=== PATIENT | female | born 1965 | race Caucasian/White ===

== ENCOUNTER 2016-07-28 17:11 | Emergency (ER) | payer OTHER ==
[~2016-07-28] VITALS: Ht 160 cm; Wt 62.0 kg
[~2016-07-28 17:11] MED LIST: ALBU18HF INHALATION; AZIT250T6 PO; BUTA1CAP39 PO; CEPH-443 PO; CIPR500T4 PO; DICY20TA59 PO; FAMO-18 PO; FIORICET PO; IBUP-1542 PO; IBUP200C PO; ONDA4TAB35 PO; ONDA4TAB8 PO; PRED50TA PO
[2016-07-28 17:15] VITALS: Ht 160 cm; Wt 62.0 kg
--- NOTE | 2016-07-28 21:46 | ERA ---
ER Documentation Chief Complaint Date/Time DATE: 07/28/16 TIME: 21:45 Chief Complaint Abdominal pain HPI The patient is a 50-year-old female, presenting to the ER because of abdominal pain, associated with nausea, vomiting, initially foot then mucus for the last 2 days. She denies fever, chills, neck pain, chest pain, dysuria, diarrhea, constipation., She does not smoke nor drink Past medical history: None Past surgical history: Tubal ligation ROS All systems reviewed and are negative except as per history of present illness. Medications Home Meds Active Scripts Ondansetron (Ondansetron Odt) 4 Mg Tab.rapdis, 4 MG PO Q6H Y for NAUSEA AND/OR VOMITING, #10 TAB Prov:YOSSI MULLINS MD 07/29/16 Ibuprofen* (Motrin*) 600 Mg Tab, 600 MG PO Q6H Y for PAIN AND OR ELEVATED TEMP, #20 TAB Prov:YOSSI MULLINS MD 07/29/16 Sulfamethoxazole-Trimethoprim* (Bactrim* DS) 800-160 Mg Tab, 1 TAB PO BID, #20 TAB Prov:YOSSI MULLINS MD 07/29/16 Discontinued Scripts Dicyclomine Hcl* (Bentyl*) 20 Mg Tablet, 20 MG PO QID, #20 TAB Prov:TAYLOR URENA NP 04/19/16 Ondansetron Hcl* (Zofran*) 4 Mg Tablet, 4 MG PO Q8H Y for NAUSEA AND/OR VOMITING , #30 TAB Prov:TAYLOR URENA NP 12/27/15 Rocovdgdnbvqf-Tydnggtsah-Olabtnzx-Codeine* (Fioricet w/ Codeine*) [id number] 30MG Capsule, 1 CAP PO Q6H Y for PAIN LEVEL 1-5, #20 CAP Prov:TAYLOR URENA NP 12/27/15 Prednisone* (Prednisone*) 50 Mg Tablet, 40 MG PO DAILY for 4 Days, TAB Prov:ISAC SANTIAGO NP 07/01/15 Azithromycin* (Azithromycin*) 250 Mg Tablet, 250 MG PO DAILY, #4 TAB Prov:ISAC SANTIAGO NP 07/01/15 Albuterol Sulfate* (Ventolin HFA*) 18 Gm Hfa.aer.ad, 2 PUFF INHALATION Q6H, #1 INHALER 0 Refills Prov:GUTIERREZ BURROUGHSJERMAN TRENT 06/21/15 Ibuprofen* (Ibuprofen*) 200 Mg Capsule, 600 MG PO BID, #60 CAP 0 Refills Prov:ELIAS BURROUGHS MILEY 06/09/15 Ondansetron Hcl* (Zofran* ODT) 4 mg -ODT Tab.disper, 4 MG PO DAILY Y for NAUSEA AND/OR VOMITING, #10 TAB 0 Refills Prov:HEIKEELIAS TRENT 06/09/15 Famotidine* (Pepcid*) 20 Mg Tablet, 20 MG PO BID for 14 Days, TAB Prov:PERRY FERRELL 04/25/15 Ondansetron Hcl* (Zofran*) 4 Mg Tablet, 4 MG PO Q6H for NAUSEA AND/OR VOMITING, #30 TAB Prov:PERRY FERRELL 04/25/15 Ibuprofen* (Ibuprofen*) 600 Mg Tablet, 600 MG PO Q6, #30 TAB Prov:FRANCINE AMBROCIO PA-C 04/25/15 Acetamin/Butalbital/Caffeine* (Fioricet*) 1 Tab Tab, 1 TAB PO Q4H Y for PAIN LEVEL 1-5, #20 TAB Prov:FRANCINE AMBROCIO PA-C 04/25/15 Ciprofloxacin Hcl* (Ciprofloxacin Hcl*) 500 Mg Tablet, 500 MG PO BID, #14 TAB Prov:FRANCINE AMBROCIO PA-C 04/25/15 Ondansetron Hcl* (Zofran*) 4 Mg Tablet, 4 MG PO Q6H for NAUSEA AND/OR VOMITING, #30 TAB Prov:JESSIE ALBARRAN MD 04/02/15 Ibuprofen* (Motrin*) 600 Mg Tab, 600 MG PO Q8, #30 0 Refills Prov:HEIKEELIAS TRENT 04/01/15 Cephalexin* (Keflex*) 500 Mg Capsule, 500 MG PO TID, #21 CAP 0 Refills Prov:HEIKEELIAS TRENT 04/01/15 Allergies Allergies: Coded Allergies: No Known Allergy (Verified , 07/28/16) PMhx/Soc History of Surgery: Yes (TUBAL LIGATION) Anesthesia Reaction: No Hx Neurological Disorder: Yes (sts possible migraine) Hx Respiratory Disorders: No Hx Cardiac Disorders: No Hx Psychiatric Problems: No Hx Miscellaneous Medical Probl: No Hx Alcohol Use: No Hx Substance Use: No Hx Tobacco Use: No Physical Exam Vitals Vital Signs Date Time Temp Pulse Resp B/P Pulse Ox O2 Delivery O2 Flow Rate FiO2 07/29/16 00:00 82 18 144/83 99 Room Air 07/28/16 23:00 68 18 135/73 99 Room Air 07/28/16 22:00 80 22 139/80 99 Room Air 07/28/16 21:53 76 16 148/72 98 Room Air 07/28/16 17:15 97.5 102 18 141/71 98 Physical Exam Const: No acute distress. Head: Atraumatic. Eyes: Normal Conjunctiva. ENT: Normal External Ears, Nose and Mouth. Neck: Full range of motion. No meningismus. Resp: Clear to auscultation bilaterally. Cardio: Regular rate and rhythm, no murmurs. Abd: Soft, non distended, normal bowel sounds, vague and diffuse abdominal tenderness, more tender at the epigastric area, no rigidity, rebound, CVA tenderness Skin: No petechiae or rashes. Back: No midline or flank tenderness. Ext: No cyanosis, or edema. Neur: Awake and alert. No focal deficit Psych: Normal Mood and Affect. Result Diagram: 07/28/16215807/28/162158 Results 24 hrs Laboratory Tests Test 07/28/16 21:59 07/28/16 23:27 White Blood Count 7.710^3/ul Red Blood Count 4.3310^6/ul Hemoglobin 12.8g/dl Hematocrit 36.7% Mean Corpuscular Volume 84.8fl Mean Corpuscular Hemoglobin 29.6pg Mean Corpuscular Hemoglobin Concent 34.9g/dl Red Cell Distribution Width 12.8% Platelet Count 25503^3/UL Mean Platelet Volume 10.7fl Neutrophils % 81.5% Lymphocytes % 13.2% Monocytes % 4.2% Eosinophils % 0.3% Basophils % 0.5% Nucleated Red Blood Cells % 0.0/100WBC Neutrophils # 6.310^3/ul Lymphocytes # 1.010^3/ul Monocytes # 0.310^3/ul Eosinophils # 0.010^3/ul Basophils # 0.010^3/ul Nucleated Red Blood Cells # 0.010^3/ul Sodium Level 141mmol/L Potassium Level 3.7mmol/L Chloride Level 104mmol/L Carbon Dioxide Level 25mmol/L Anion Gap 16 Blood Urea Nitrogen 14mg/dl Creatinine 0.44mg/dl Glucose Level 113mg/dl Calcium Level 9.4mg/dl Total Bilirubin 0.4mg/dl Direct Bilirubin 0.00mg/dl Indirect Bilirubin 0.4mg/dl Aspartate Amino Transf (AST/SGOT) 24IU/L Alanine Aminotransferase (ALT/SGPT) 31IU/L Alkaline Phosphatase 109IU/L Total Protein 7.5g/dl Albumin 4.4g/dl Globulin 3.10g/dl Albumin/Globulin Ratio 1.41 Lipase 49U/L Bedside Urine pH (LAB) 5.5 Bedside Urine Protein (LAB) 2+ Bedside Urine Glucose (UA) Negative Bedside Urine Ketones (LAB) 4+ Bedside Urine Blood Trace-lysed Bedside Urine Nitrite (LAB) Negative Bedside Urine Leukocyte Esterase (L 1+ Current Medications Medications (Trade) Dose Ordered Sig/Claire Route PRN Reason Start Time Stop Time Status Last Admin Dose Admin Ondansetron HCl (Zofran Inj) 4 mg ONCE STAT IV 07/28/16 22:08 07/28/16 22:11 DC 07/28/16 23:54 Morphine Sulfate (morphine) 2 mg ONCE ONCE IV 07/28/16 22:30 07/28/16 22:31 DC 07/28/16 23:56 Pantoprazole (Protonix Iv) 40 mg ONCE ONCE IV 07/28/16 22:30 07/28/16 22:31 DC 07/28/16 23:50 Procedures/[place] [address] Radiology Main Line: [phone] DIAGNOSTIC IMAGING REPORT Patient: PHILIP PARDO : 1965 Age: 50 Sex: F MR #: [id number] DOS: 07/28/168 Ordering MD: YOSSI MULLINS MD Location: E/R Room/Bed: PROCEDURE: US right upper quadrant CLINICAL INDICATION: Abdominal pain TECHNIQUE: Multiple real-time images were acquired of the patient's right upper abdomen utilizing a high resolution transducer. COMPARISON: None available FINDINGS: Liver: Normal in size, contour and echogenicity. Normal directional blood flow is seen within the patent main portal vein. The maximum dimension estimated at 12.5 cm . Gallbladder: Normal. No sonographic Cope's sign is reported. Common bile duct: Normal; 2.1 mm. There is no evidence for choledocholithiasis. Right Kidney: Normal; maximum length measured at approximately 11.5 cm. Pancreas: Visualized portions are normal. The tail is partially obscured by bowel gas. RPTAT:HJJR IMPRESSION: Normal right upper quadrant ultrasound. Physician Freeman Date Time Electronically viewed and signed by Physician Freeman on 07/28/2016 23:14 JR/ CC: YOSSI MULLINS MD [place] [id number] Radiology Main Line: [phone] DIAGNOSTIC IMAGING REPORT Patient: PHILIP PARDO : 1965 Age: 50 Sex: F MR #: [id number] DOS: 07/28/162207 Ordering MD: YOSSI MULLINS MD Location: E/R Room/Bed: PROCEDURE: CT abdomen and pelvis without contrast. CLINICAL INDICATION: Abdominal pain TECHNIQUE: CT scan of the abdomen and pelvis without contrast was performed. Sagittal and coronal reformatted images were obtained from the axial source images. CTDI = 7.59 mGy; DLP = 377.76 mGy-cm COMPARISON: Right upper quadrant ultrasound 07/28/2016 FINDINGS: Visualized lower thorax: Incidental calcified granuloma of the posterior right lower lobe, the lung bases are otherwise clear. There is no evidence for pleural effusion. Liver, gallbladder, pancreas and spleen: The liver is normal and size, contour and attenuation. There is no evidence for a liver mass or ductal dilatation. The gallbladder is unremarkable. No common bile duct abnormality is demonstrated. The pancreas is unremarkable. The spleen is normal in size. Adrenal glands and genitourinary system: The adrenal glands are normal bilaterally. The kidneys are normal and size, contour and attenuation with no evidence for masses, calculi or hydronephrosis. The ureters are unremarkable. No urinary bladder abnormality is demonstrated. The uterus and adnexa are unremarkable. There is no evidence of free fluid in the cul-de-sac. Gastrointestinal system: A small sliding hiatal hernia is present the remainder of the stomach is unremarkable.. The small bowel is normal in caliber with no ileus, obstruction or wall thickening. The appendix and surrounding fat are within the limits of normal. The colon shows no evidence for wall thickening or acute abnormality. Collapse of the lumen involving the distal transverse and descending colon may reflect colonic spasm, few diverticula of the distal colon are present. There is no evidence of diverticulitis Peritoneum, retroperitoneum, lymph nodes and vessels: The abdominal aorta is normal in caliber. There is no evidence for atherosclerotic calcification. The inferior vena cava is unremarkable. There is no evidence for adenopathy or mass. There is no ascites. Osseous structures and musculoskeletal findings: There is no fracture, lytic or blastic lesion. Bulging disk material facet arthropathy 08/09 contribute to central canal stenosis. No muscular abnormality or soft tissue pathology is present. RPTAT:HJJR IMPRESSION: 1. Collapse of the lumen involving the distal transverse and descending colon segments are equivocal for colonic spasm, colitis is believed to be less likely but correlation with diarrhea clinically is recommended. 2. Small sliding hiatal hernia. 3. Disk bulging at L4-5 contributing to central canal stenosis. 4. Otherwise unremarkable unenhanced examination. Physician Freeman Date Time Electronically viewed and signed by Physician Freeman on 07/28/2016 23:20 JR/ CC: YOSSI MULLINS MD MEDICAL MAKING DECISION: The patient is a 50-year-old female, presenting to the ER because of acute abdominal pain, most likely due to acute cystitis. She was treated with Zofran 4 mg IV for nausea, morphine 2 mg IV for pain, Protonix 40 mg IV with good response. The differential diagnoses considered include but are not limited to cholelithiasis, cholecystitis, cystitis, pancreatitis, hepatitis, gastritis, peptic ulcer disease, gastric ulcer, appendicitis, diverticulitis, cholangitis, choledocholithiasis, partial small bowel obstruction. Departure Diagnosis: Primary Impression: UTI (urinary tract infection) Condition: Good Comments She was discharged with Bactrim DS, Motrin, Zofran I discussed the findings with the patient. I advised the patient to follow-up with the primary physician in about 1-2 days, sooner if needed and return if any concern. The patient's blood pressure was elevated (>120/80) but appears stable without evidence of hypertension emergency or urgency. The patient was counseled about the risks of hypertension and urged to pursue outpatient monitoring and therapy within a week with their primary care physician. YOSSI MULLINS MD Jul 28, 2016 21:46
[2016-07-28] MEDS ORDERED: ONDANSETRON 4 MG INJ IV STA (22:08)
[2016-07-28 22:10] LABS: ADD SCAN DIFF NO
[2016-07-28 22:11] LABS: BASOPHILS % 0.5 % (0.0-2.0); EOSINOPHILS % 0.3 % (0.0-7.0); HEMATOCRIT 36.7 % (37.0-47.0); HEMOGLOBIN 12.8 g/dl (12.0-16.0); LYMPHOCYTES % 13.2 % (15.0-51.0); MEAN CORPUSCULAR HEMOGLOBIN 29.6 pg (29.0-33.0); MEAN CORPUSCULAR HGB CONC 34.9 g/dl (32.0-37.0); MEAN CORPUSCULAR VOLUME 84.8 fl (82.0-101.0); MEAN PLATELET VOLUME 10.7 fl (7.4-10.4); MONOCYTE # 0.3 10^3/ul (0.3-0.9); MONOCYTES % 4.2 % (0.0-11.0); NEUTROPHIL # 6.3 10^3/ul (1.6-7.5); NEUTROPHILS % 81.5 % (39.0-77.0); PLATELET COUNT 234 10^3/UL (140-415); RED BLOOD COUNT 4.33 10^6/ul (4.20-5.40); RED CELL DISTRIBUTION WIDTH 12.8 % (11.5-14.5); WHITE BLOOD COUNT 7.7 10^3/ul (4.8-10.8)
[2016-07-28 22:19] LABS: ALBUMIN 4.4 g/dl (3.3-4.9)
[2016-07-28 22:20] LABS: POTASSIUM 3.7 mmol/L (3.5-5.1)
[2016-07-28 22:22] LABS: ALBUMIN/GLOBULIN RATIO 1.41; BILIRUBIN,INDIRECT 0.4 mg/dl (0-1.1); BILIRUBIN,TOTAL 0.4 mg/dl (0.2-1.3); CREATININE 0.44 mg/dl (0.44-1.00); TOTAL PROTEIN 7.5 g/dl (6.1-8.1)
[2016-07-28 22:23] LABS: CALCIUM 9.4 mg/dl (8.4-10.2)
[2016-07-28] MEDS ORDERED: morphine 2 MG INJ IV ONE (22:30)
[2016-07-28] MEDS ORDERED: PANTOPRAZOLE 40 MG INJ IV ONE (22:30)
--- NOTE | 2016-07-28 23:14 | RADRPT ---
PROCEDURE: US right upper quadrant CLINICAL INDICATION: Abdominal pain TECHNIQUE: Multiple real-time images were acquired of the patient's right upper abdomen utilizing a high resolution transducer. COMPARISON: None available FINDINGS: Liver: Normal in size, contour and echogenicity. Normal directional blood flow is seen within the p atent main portal vein. The maximum dimension estimated at 12.5 cm . Gallbladder: Normal. No sonographic Cope's sign is reported. Common bile duct: Normal; 2.1 mm. There is no evidence for choledocholithiasis. Right Kidney: Normal; maximum length measured at approximately 11.5 cm. Pancreas: Visualized portions are normal. The tail is partially obscured by bowel gas. RPTAT:HJJR IMPRESSION: Normal right upper quadrant ultrasound. Physician Freeman Date Time Electronically viewed and signed by Physician Freeman on 07/28/2016 23:14 /
--- NOTE | 2016-07-28 23:20 | RADRPT ---
PROCEDURE: CT abdomen and pelvis without contrast. CLINICAL INDICATION: Abdominal pain TECHNIQUE: CT scan of the abdomen and pelvis without contrast was performed. Sagittal and coronal reformatted images were obtained from the axial source images. CTDI = 7.59 mGy; DLP = 377.76 mGy-cm COMPARISON: Right upper quadrant ultrasound 07/28/2016 FINDINGS: Visualized lower thorax: Incidental calcified granuloma of the posterior right lower lobe, the lung bases are otherwise clear. There is no evidence for pleural effusion. Liver, gallbladder, pancreas and spleen: The liver is normal and size, contour and attenuation. Th ere is no evidence for a liver mass or ductal dilatation. The gallbladder is unremarkable. No comm on bile duct abnormality is demonstrated. The pancreas is unremarkable. The spleen is normal in si ze. Adrenal glands and genitourinary system: The adrenal glands are normal bilaterally. The kidneys are normal and size, contour and attenuation with no evidence for masses, calculi or hydronephrosis. T he ureters are unremarkable. No urinary bladder abnormality is demonstrated. The uterus and adnexa are unremarkable. There is no evidence of free fluid in the cul-de-sac. Gastrointestinal system: A small sliding hiatal hernia is present the remainder of the stomach is u nremarkable.. The small bowel is normal in caliber with no ileus, obstruction or wall thickening. The appendix and surrounding fat are within the limits of normal. The colon shows no evidence for w all thickening or acute abnormality. Collapse of the lumen involving the distal transverse and desc ending colon may reflect colonic spasm, few diverticula of the distal colon are present. There is no evidence of diverticulitis Peritoneum, retroperitoneum, lymph nodes and vessels: The abdominal aorta is normal in caliber. The re is no evidence for atherosclerotic calcification. The inferior vena cava is unremarkable. There is no evidence for adenopathy or mass. There is no ascites. Osseous structures and musculoskeletal findings: There is no fracture, lytic or blastic lesion. Bul ging disk material facet arthropathy 08/09 contribute to central canal stenosis. No muscular abnorma lity or soft tissue pathology is present. RPTAT:HJJR IMPRESSION: 1. Collapse of the lumen involving the distal transverse and descending colon segments are equivoca l for colonic spasm, colitis is believed to be less likely but correlation with diarrhea clinically is recommended. 2. Small sliding hiatal hernia. 3. Disk bulging at L4-5 contributing to central canal stenosis. 4. Otherwise unremarkable unenhanced examination. Oumar Mosher Physician Date Time Electronically viewed and signed by Oumar Mosher Physician on 07/28/2016 23:20 /
[2016-07-28 23:28] LABS: URINE BLOOD (Dip) POC Trace-lysed (NEGATIVE)
[2016-07-29] MEDS ORDERED: BACTDS PO (01:49)
[2016-07-29] MEDS ORDERED: ONDA4TAB14 PO (01:50)
[2016-07-29] MEDS ORDERED: IBUP-1542 PO (01:50)
[2016-07-29 02:00] VITALS: BP 145/84; PULSE 62; RESP 18
== END 2016-07-29 02:52 | disposition home or self-care (01) ==
LOC: E/R 17:11
DX: N39.0 Urinary tract infection, site not specified (principal)
CPT/HCPCS: 74176; 76705; 80053; 81003; 83690; 85025; 96374; 96375; C9113; J2270; J2405; Z7502

== ENCOUNTER 2016-09-01 16:18 | Emergency (ER) | payer OTHER ==
[~2016-09-01] VITALS: Ht 157.5 cm; Wt 67.0 kg
[~2016-09-01 16:18] MED LIST changes: -ALBU18HF INHALATION; -AZIT250T6 PO; +BACTDS PO; -BUTA1CAP39 PO; -CEPH-443 PO; -CIPR500T4 PO; -DICY20TA59 PO; -FAMO-18 PO; -FIORICET PO; -IBUP200C PO; +ONDA4TAB14 PO; -ONDA4TAB35 PO; -ONDA4TAB8 PO; -PRED50TA PO
[2016-09-01 16:29] VITALS: Ht 157.5 cm; Wt 67.0 kg
[2016-09-01] MEDS ORDERED: ONDANSETRON (ODT) 4 MG TAB ODT STA (19:18)
[2016-09-01 19:19] LABS: URINE BLOOD (Dip) POC Trace-lysed (NEGATIVE)
[2016-09-01] MEDS ORDERED: PANT40TA3 PO (19:20)
[2016-09-01] MEDS ORDERED: ONDA4TAB14 PO (19:20)
[2016-09-01] MEDS ORDERED: LIDOCAINE/MYLANTA 40 ML BTL PO ONE (19:30)
[2016-09-01] MEDS ORDERED: ACETAMINOPHEN 325 MG TAB PO ONE (19:30)
[2016-09-01 19:46] VITALS: BP 138/81; PULSE 74; RESP 18
--- NOTE | 2016-09-01 21:45 | ERD ---
ER Documentation Chief Complaint Date/Time DATE: 09/01/16 TIME: 21:43 Chief Complaint ap with vomiting x 2 days HPI Patient is a 50-year-old female with no medical problems who presents with abdominal pain and vomiting. She has had abdominal pain for the past 2 days. She has vomiting and she also has diarrhea. The symptoms have been constant. She tried a medicine for her vomiting but she does not know what medicine it was. She has no fevers. She has not called her primary doctor as of yet. Upon review of old medical record she has multiple visits to the ER for various complaints. ROS All systems reviewed and are negative except as per history of present illness. Medications Home Meds Active Scripts Pantoprazole* (Protonix*) 40 Mg Tablet.dr, 40 MG PO DAILY, #20 TAB Prov:BESS TREJO MD 09/01/16 Ondansetron (Ondansetron Odt) 4 Mg Tab.rapdis, 4 MG PO Q6H Y for NAUSEA AND/OR VOMITING, #30 TAB Prov:BESS TREJO MD 09/01/16 Discontinued Scripts Ondansetron (Ondansetron Odt) 4 Mg Tab.rapdis, 4 MG PO Q6H Y for NAUSEA AND/OR VOMITING, #10 TAB Prov:YOSSI MULLINS MD 07/29/16 Ibuprofen* (Motrin*) 600 Mg Tab, 600 MG PO Q6H Y for PAIN AND OR ELEVATED TEMP, #20 TAB Prov:YOSSI MULLINS MD 07/29/16 Sulfamethoxazole-Trimethoprim* (Bactrim* DS) 800-160 Mg Tab, 1 TAB PO BID, #20 TAB Prov:YOSSI MULLINS MD 07/29/16 Allergies Allergies: Coded Allergies: No Known Allergy (Verified , 09/01/16) PMhx/Soc History of Surgery: Yes (TUBAL LIGATION) Anesthesia Reaction: No Hx Neurological Disorder: Yes (sts possible migraine) Hx Respiratory Disorders: No Hx Cardiac Disorders: No Hx Psychiatric Problems: No Hx Miscellaneous Medical Probl: No Hx Alcohol Use: No Hx Substance Use: No Hx Tobacco Use: No Smoking Status: Never smoker FmHx Family History: No diabetes Physical Exam Vitals Vital Signs Date Time Temp Pulse Resp B/P Pulse Ox O2 Delivery O2 Flow Rate FiO2 09/01/16 19:46 74 18 138/81 100 Room Air 09/01/16 16:29 98.4 74 20 163/76 99 Physical Exam Const: No acute distress Head: Atraumatic Eyes: Normal Conjunctiva ENT: Normal External Ears, Nose and Mouth. Neck: Full range of motion..~ No meningismus. Resp: Clear to auscultation bilaterally Cardio: Regular rate and rhythm, no murmurs Abd: Soft, minimal epigastric tenderness with palpation without rebound or guarding Skin: No petechiae or rashes Back: No midline or flank tenderness Ext: No cyanosis, or edema Neur: Awake and alert Psych: Normal Mood and Affect Results 24 hrs Laboratory Tests Test 09/01/16 19:19 Bedside Urine pH (LAB) 7.0 Bedside Urine Protein (LAB) 2+ Bedside Urine Glucose (UA) Negative Bedside Urine Ketones (LAB) 2+ Bedside Urine Blood Trace-lysed Bedside Urine Nitrite (LAB) Negative Bedside Urine Leukocyte Esterase (L Trace Current Medications Medications (Trade) Dose Ordered Sig/Claire Route PRN Reason Start Time Stop Time Status Last Admin Dose Admin Ondansetron HCl (Zofran Odt) 4 mg ONCE STAT ODT 09/01/16 19:18 09/01/16 19:19 DC 09/01/16 19:26 Miscellaneous Medication (Gi Cocktail (2)) 40 ml ONCE ONCE PO 09/01/16 19:30 09/01/16 19:31 DC 09/01/16 19:27 Acetaminophen (Tylenol Tab) 650 mg ONCE ONCE PO 09/01/16 19:30 09/01/16 19:31 DC 09/01/16 19:26 Procedures/MDM Patient is a 50-year-old female with no medical problems who presents with abdominal pain, vomiting, and diarrhea. I believe the patient likely has a viral illness at this time. I doubt acute coronary syndrome, cholecystitis, pancreatitis, appendicitis, or bowel obstruction. I believe outpatient management is appropriate. However the patient will need close follow-up with her primary doctor within 24 hours for reevaluation. She can return sooner for any worsening symptoms. She will be given a prescription for Protonix and Zofran. Departure Diagnosis: Primary Impression: Abdominal pain Abdominal location: epigastric Qualified Code: R10.13 - Epigastric pain Additional Impression: Vomiting and diarrhea Condition: Fair Patient Instructions: Abdominal Pain, Self-Care for Vomiting and Diarrhea Referrals: Your doctor Additional Instructions: Llame al doctor MAANA y mckenna yue ANICETO PARA DENTRO DE 1-2 SONI.Dgale a la secretaria que nosotros le instruimos hacer esta aniceto.Avise o llame si koch condicin se empeora antes de la aniceto. Regresa aqui si peor o no mejor. BESS TREJO MD Sep 01, 2016 21:45
== END 2016-09-01 19:45 | disposition home or self-care (01) ==
LOC: E/R 16:18
DX: R10.13 Epigastric pain (principal); R11.10 Vomiting, unspecified; R19.7 Diarrhea, unspecified
CPT/HCPCS: 81003; Z7610; 99284

== ENCOUNTER 2017-03-20 23:03 | Emergency (ER) | payer OTHER ==
[~2017-03-20] VITALS: Ht 152.4 cm; Wt 62.0 kg
[~2017-03-20 23:03] MED LIST changes: -BACTDS PO; -IBUP-1542 PO; +PANT40TA3 PO
[2017-03-20 23:07] VITALS: Ht 152.4 cm; Wt 62.0 kg
[2017-03-21] MEDS ORDERED: ONDANSETRON 4 MG INJ IM STA (01:07)
--- NOTE | 2017-03-21 01:41 | ERD ---
ER Documentation Chief Complaint Chief Complaint velasquez and persistent n/v x 10 hrs, poor appetite, + mild dizziness HPI 51-year-old female presents here to emergency department for complaints of headache and vomiting that started yesterday. Patient is complaining of slight dizziness. Patient's complaint of headache throbbing pain, 6/10 scale, accompanied with vomiting. Patient has history of migraine from before. Patient did not take any medications to help with symptoms. She denies any head injury. ROS All systems reviewed and are negative except as per history of present illness. Medications Home Meds Active Scripts Pantoprazole* (Protonix*) 40 Mg Tablet.dr, 40 MG PO DAILY, #20 TAB Prov:BESS TREJO MD 09/01/16 Ondansetron (Ondansetron Odt) 4 Mg Tab.rapdis, 4 MG PO Q6H Y for NAUSEA AND/OR VOMITING, #30 TAB Prov:BESS TREJO MD 09/01/16 Allergies Allergies: Coded Allergies: No Known Allergy (Verified , 09/01/16) PMhx/Soc History of Surgery: Yes (TUBAL LIGATION) Anesthesia Reaction: No Hx Neurological Disorder: Yes (sts possible migraine) Hx Respiratory Disorders: No Hx Cardiac Disorders: No Hx Psychiatric Problems: No Hx Miscellaneous Medical Probl: No Hx Alcohol Use: No Hx Substance Use: No Hx Tobacco Use: No Smoking Status: Never smoker FmHx Family History: No coronary disease, No diabetes, No other Physical Exam Vitals Vital Signs Date Time Temp Pulse Resp B/P Pulse Ox O2 Delivery O2 Flow Rate FiO2 03/20/17 23:07 98.6 94 18 135/94 97 Physical Exam GENERAL: The patient is well developed and appropriate for usual state of health, in no apparent distress. CHEST: Clear to auscultation bilaterally. There are no rales, wheezes or rhonchi. HEART: Regular rate and rhythm. No murmurs, clicks, rubs or gallops. No S3 or S4. ABDOMEN: Soft, nontender and nondistended. Good bowel sounds. No rebound or guarding. No gross peritonitis. No gross organomegaly or masses. No Cope sign or McBurney point tenderness. BACK: No midline or flank tenderness. EXTREMITIES: Equal pulses bilaterally. There is no peripheral clubbing, cyanosis or edema. No focal swelling or erythema. Full range of motion. Grossly neurovascularly intact. NEURO: Alert and oriented. Cranial nerves 2-12 intact. Motor strength in all 4 extremities with 5/5 strength. Sensation grossly intact. Normal speech and gait. Negative Romberg sign. Negative pronator drift. SKIN: There is no apparent rash or petechia. The skin is warm and dry. HEMATOLOGIC AND LYMPHATIC: There is no evidence of excessive bruising or lymphedema. No gross cervical, axillary, or inguinal lymphadenopathy. Results 24 hrs Current Medications Medications (Trade) Dose Ordered Sig/Claire Route PRN Reason Start Time Stop Time Status Last Admin Dose Admin Ondansetron HCl (Zofran Inj) 4 mg ONCE STAT IM 03/21/17 01:07 03/21/17 01:09 DC Patient was given Zofran here in the emergency department. After treatment, patient was able to tolerate po fluids here in the emergency department without any vomiting. There is no signs and symptoms of dehydration. PROCEDURE: Noncontrast CT Head. CLINICAL INDICATION: Pain. TECHNIQUE: Noncontrast CT of the head was obtained. The administered radiation dose was CTDI vol = 45 mGy, DLP = 720 mGy-cm. One or more of the following dose reduction techniques were used: automated exposure control, adjustment of the mA and/or kV according to patient size and/or use of iterative reconstruction technique. DICOM images are available. COMPARISON: 12/27/2015 FINDINGS: The ventricles and cortical sulci are mildly enlarged. There is mild decreased attenuation within the periventricular and subcortical white matter compatible with chronic microvascular changes. A small chronic subcortical infarct is noted along the right precentral gyrus. There is no acute intracranial hemorrhage or extra-axial fluid collection. There is no mass effect. No midline shift is identified. There is no loss of early-white differentiation to suggest acute infarction. The orbits are within normal limits. The paranasal sinuses are well aerated. No destructive osseous lesion is identified. IMPRESSION: No acute findings. Mild diffuse parenchymal volume loss and chronic microvascular changes. Small chronic right frontal cortical infarct. RPTAT: HIKT .Karl Evans MD, MD Date Time Electronically viewed and signed by .Karl Evans MDMD on 03/21/2017 01:47 .T/ CC: TAYLOR URENA NP Procedures/MDM Medical Decision Making: Patient symptoms are consistent with migraine headache , possible tension headache. There is low suspicion for neurological emergencies at this time since patients neurologic exam is normal. Patient did not have any altered level consciousness, vomiting, changes in balance or memory and did not have any head injury. Patients CT scan of the head does not show any neurological emergencies at this time. Rx: Fioricet with codeine, Zofran Dispostion: Home. Stable Disclaimer: Inadvertent spelling and grammatical errors are likely due to EHR/ dictation software use and do not reflect on the overall quality of patient care. Also, please note that the electronic time recorded on this note does not necessarily reflect the actual time of the patient encounter. Departure Diagnosis: Primary Impression: Headache Headache type: unspecified Headache chronicity pattern: acute headache Intractability: not intractable Qualified Code: R51 - Acute nonintractable headache, unspecified headache type Condition: Stable Patient Instructions: Self-Care for Headaches TAYLOR URENA NP Mar 21, 2017 01:41
--- NOTE | 2017-03-21 01:48 | RADRPT ---
PROCEDURE: Noncontrast CT Head. CLINICAL INDICATION: Pain. TECHNIQUE: Noncontrast CT of the head was obtained. The administered radiation dose was CTDI vol = 45 mGy, DLP = 720 mGy-cm. One or more of the following dose reduction techniques were used: automate d exposure control, adjustment of the mA and/or kV according to patient size and/or use of iterative reconstruction technique. DICOM images are available. COMPARISON: 12/27/2015 FINDINGS: The ventricles and cortical sulci are mildly enlarged. There is mild decreased attenuation within t he periventricular and subcortical white matter compatible with chronic microvascular changes. A small chronic subcortical infarct is noted along the right precentral gyrus. There is no acute in tracranial hemorrhage or extra-axial fluid collection. There is no mass effect. No midline shift is identified. There is no loss of early-white differentiation to suggest acute infarction. The orbits are within normal limits. The paranasal sinuses are well aerated. No destructive osseous lesion is identified. IMPRESSION: No acute findings. Mild diffuse parenchymal volume loss and chronic microvascular changes. Small chronic right frontal cortical infarct. RPTAT: HIKT .Karl Evans MD, Date Time Electronically viewed and signed by .Karl Evans MD, on 03/21/2017 01:47 .T/
[2017-03-21] MEDS ORDERED: ABCC1C PO (01:55)
[2017-03-21] MEDS ORDERED: ONDA4TAB14 PO (01:55)
== END 2017-03-21 02:25 | disposition home or self-care (01) ==
LOC: FTE 23:03
DX: R51 Headache (principal); R11.10 Vomiting, unspecified; R42 Dizziness and giddiness
CPT/HCPCS: 70450; 96372; J2405; Z7502

== ENCOUNTER 2017-04-29 15:08 | Emergency (ER) | payer OTHER ==
[~2017-04-29] VITALS: Ht 154.9 cm; Wt 63.5 kg
[~2017-04-29 15:08] MED LIST changes: +ABCC1C PO
[2017-04-29 15:12] VITALS: Ht 154.9 cm; Wt 63.5 kg
[2017-04-29 18:03] VITALS: BP 167/71; PULSE 60; RESP 16; TEMP 98.4
[2017-04-29] MEDS ORDERED: SOD CHLORIDE 0.9% 1,000 ML IV ONE (18:30)
[2017-04-29] MEDS ORDERED: METOCLOPRAMIDE 10 MG INJ IV ONE (18:30)
[2017-04-29] MEDS ORDERED: DIPHENHYDRAMINE 50 MG INJ IV ONE (18:30)
--- NOTE | 2017-04-29 20:43 | ERD ---
ER Documentation Chief Complaint Chief Complaint Headache, acomp with vomitting since last night HPI This 51-year-old female presents with headache this been going for 3 days. She is also had nausea and had one episode of nonbloody nonbilious vomiting last night. Headache is a bandlike sensation in the front of her head that goes around to the back. It came on gradually 3 days ago and gradually got worse. She has no neurological deficits and no weakness. She is able to walk without any difficulty. Mild photophobia. ROS All systems reviewed and are negative except as per history of present illness. Medications Home Meds Active Scripts Ondansetron (Ondansetron Odt) 4 Mg Tab.rapdis, 4 MG PO Q6H Y for NAUSEA AND/OR VOMITING, #15 TAB Prov:TAYLOR URENA NP 03/21/17 Qzzkjpfwmmstz-Hrguzhratg-Xkbazpnb-Codeine* (Fioricet w/Codeine*) [id number] -30MG Cap, 1 CAP PO Q4H Y for PAIN LEVEL 1-5, #15 CAP Prov:TAYLOR URENA NP 03/21/17 Pantoprazole* (Protonix*) 40 Mg Tablet.dr, 40 MG PO DAILY, #20 TAB Prov:BESS TREJO MD 09/01/16 Ondansetron (Ondansetron Odt) 4 Mg Tab.rapdis, 4 MG PO Q6H Y for NAUSEA AND/OR VOMITING, #30 TAB Prov:BESS TREJO MD 09/01/16 Allergies Allergies: Coded Allergies: No Known Allergy (Verified , 09/01/16) PMhx/Soc History of Surgery: Yes (TUBAL LIGATION) Anesthesia Reaction: No Hx Neurological Disorder: Yes (sts possible migraine) Hx Respiratory Disorders: No Hx Cardiac Disorders: No Hx Psychiatric Problems: No Hx Miscellaneous Medical Probl: No Hx Alcohol Use: No Hx Substance Use: No Hx Tobacco Use: No Smoking Status: Never smoker Physical Exam Vitals Vital Signs Date Time Temp Pulse Resp B/P Pulse Ox O2 Delivery O2 Flow Rate FiO2 04/29/17 18:03 98.4 60 16 167/71 100 04/29/17 15:12 97.9 73 20 180/81 99 Physical Exam Const: [] Mild distress Head: Atraumatic Eyes: Normal Conjunctiva EOMI, PERRLA ENT: Normal External Ears, Nose and Mouth. Neck: Full range of motion..~ No meningismus. Resp: Clear to auscultation bilaterally Cardio: Regular rate and rhythm, no murmurs Abd: Soft, non tender, non distended. Normal bowel sounds Skin: No petechiae or rashes Ext: No cyanosis, or edema Neur: Awake and alert and oriented 3, creatinine is 2 through 12 intact, no cerebellar deficits, equal litigation services manager strength, normal gait Psych: Normal Mood and Affect Results 24 hrs Current Medications Medications (Trade) Dose Ordered Sig/Claire Route PRN Reason Start Time Stop Time Status Last Admin Dose Admin Diphenhydramine HCl (Benadryl) 12.5 mg ONCE ONCE IV 04/29/17 18:30 04/29/17 18:31 DC 04/29/17 19:03 Metoclopramide HCl 10 mg 10 mg ONCE ONCE IV 04/29/17 18:30 04/29/17 18:31 DC 04/29/17 19:03 Sodium Chloride (NS) 1,000 ml @ 1,000 mls/hr Q1H ONCE IV 04/29/17 18:30 04/29/17 19:29 DC 04/29/17 19:03 Procedures/MDM Acute headache and 51-year-old female who does have hypertension. Resolved with headache cocktail of 12.5 mg IV Benadryl, 10 mg IV Reglan, 500 cc of normal saline. Patient is not taking for hypertension. All symptoms are resolved I am going to discharge her with a prescription for amlodipine 5 mg tablets to begin treatment of hypertension. She does have a primary care doctor that she can follow-up with her easily and will make an appointment for next week. She has no cardiac symptoms, no chest pain shortness of breath in the blood pressure is not high enough to warrant lowering in the ER with IV medications. Suspicion for subarachnoid hemorrhages pattern of onset of the headache and the ease in resolution. Departure Diagnosis: Primary Impression: Headache Additional Impression: Hypertension Condition: Stable ZHANNA MIRZA DO Apr 29, 2017 20:43
[2017-04-29] MEDS ORDERED: AMLO-145 PO (20:45)
[2017-04-29] MEDS ORDERED: AMLODIPINE 5 MG TAB PO ONE (21:00)
== END 2017-04-29 22:05 | disposition home or self-care (01) ==
LOC: E/R 15:08
DX: I10 Essential (primary) hypertension (principal)
CPT/HCPCS: 96374; 96375; J1200; J2765; J7030; Z7502; Z7610

== ENCOUNTER 2017-06-11 19:49 | Emergency (ER) | END 2017-06-12 07:41 | disposition home or self-care (01) ==

== ENCOUNTER 2018-08-16 17:28 | Emergency (ER) | payer OTHER ==
[~2018-08-16] VITALS: Ht 157.5 cm; Wt 66.0 kg
[~2018-08-16 17:28] MED LIST changes: +ALBU18HF INHALATION; +AMLO-145 PO; +AZIT250T PO; +CETI10CA PO; +NASO17 NASAL; +PRED20TA PO
[2018-08-16 17:31] VITALS: Ht 157.5 cm; Wt 66.0 kg
[2018-08-16] MEDS ORDERED: D-ME118S24 PO (18:59)
[2018-08-16] MEDS ORDERED: ALBU18HF INHALATION (18:59)
--- NOTE | 2018-08-16 19:02 | ERD ---
ER Documentation Chief Complaint Chief Complaint Cough times 2 weeks HPI 52-year-old female with history of asthma and hypertension presents for cough times 2 weeks. She states that the cough is dry. States that she ran out of her albuterol. Denies any fevers or chills. States that the cough is worse at night. No treatments tried at home. Otherwise denies chest pain or shortness of breath. ROS All systems reviewed and are negative except as per history of present illness. Medications Home Meds Active Scripts D-Methorphan Hb/P-Epd HCl/Bpm (Rqsuwxzytw-Kusvuytipkk-Dq Syr) 118 Ml Syrup, 5 ML PO Q4H PRN for COUGH for 10 Days, #1 BOTTLE Prov:YOSSI FOSTER DO 08/16/18 Albuterol Sulfate* (Ventolin HFA*) 18 Gm Hfa.aer.ad, 2 PUFF INHALATION Q4H PRN for cough/shortness of breath, #1 INHALER 2 Refills Prov:YOSSI FOSTER DO 08/16/18 Azithromycin* (Zithromax*) 250 Mg Tablet, 250 MG PO .KanaPAMAULIK DIRECTED, #6 TAB TAKE 500 MG (2 TABS) THE FIRST DAY THEN 250 MG (1 TAB) DAYS 2-5 Prov:KEVIN ANGEL PA-C 06/12/17 Mometasone Furoate* (Nasonex*) 50 Mcg/Iota - 17 Gm Iota.pump, 1 SPRAY NASAL BID, #1 BOTTLE IN EACH NOSTRIL Prov:KEVIN ANGEL PA-C 06/12/17 Cetirizine Hcl* (Zyrtec*) 10 Mg Capsule, 10 MG PO DAILY, #10 TAB.CHEW Prov:KEVIN ANGEL PA-C 06/12/17 Albuterol Sulfate* (Ventolin HFA*) 18 Gm Hfa.aer.ad, 2 PUFF INHALATION Q4H, #1 INHALER Prov:KEVIN ANGEL PA-C 06/12/17 Prednisone* (Prednisone*) 20 Mg Tab, 40 MG PO DAILY for 4 Days, TAB Prov:KEVIN ANGEL PA-C 06/12/17 Amlodipine Besylate* (Amlodipine Besylate*) 5 Mg Tablet, 5 MG PO DAILY, #30 TAB Prov:ZHANNA MIRZA DO 04/29/17 Ondansetron (Ondansetron Odt) 4 Mg Tab.rapdis, 4 MG PO Q6H PRN for NAUSEA AND/OR VOMITING, #15 TAB Prov:TAYLOR URENA NP 03/21/17 Xyejjtohqctdr-Gkrjuywdes-Cefinwte-Codeine* (Fioricet w/Codeine*) [id number] Cap, 1 CAP PO Q4H PRN for PAIN LEVEL 1-5, #15 CAP Prov:TAYLOR URENA NP 03/21/17 Pantoprazole* (Protonix*) 40 Mg Tablet.dr, 40 MG PO DAILY, #20 TAB Prov:BESS TREJO MD 09/01/16 Ondansetron (Ondansetron Odt) 4 Mg Tab.rapdis, 4 MG PO Q6H PRN for NAUSEA AND/OR VOMITING, #30 TAB Prov:BESS TREJO MD 09/01/16 Allergies Allergies: Coded Allergies: No Known Allergy (Verified , 06/12/17) PMhx/Soc History of Surgery: Yes (TUBAL LIGATION) Anesthesia Reaction: No Hx Neurological Disorder: Yes (sts possible migraine) Hx Respiratory Disorders: Yes (asthma ) Hx Cardiac Disorders: No Hx Psychiatric Problems: No Hx Miscellaneous Medical Probl: No Hx Alcohol Use: No Hx Substance Use: No Hx Tobacco Use: No Smoking Status: Never smoker Physical Exam Vitals Vital Signs Date Temp Pulse Resp B/P (MAP) Pulse Ox O2 O2 Flow FiO2 Time Delivery Rate 08/16/18 97.9 96 16 146/73 98 17:31 (97) Physical Exam Const: No acute distress Head: Atraumatic Eyes: Normal Conjunctiva ENT: Normal External Ears, bilateral tympanic membrane intact without erythema or bulging noted, nose and Mouth examination normal, no tonsillar swelling or exudate noted Neck: Full range of motion. No meningismus. Resp: Clear to auscultation bilaterally, no wheezing, rales, rhonchi Cardio: Regular rate and rhythm, no murmurs Skin: No petechiae or rashes Ext: No cyanosis, or edema Neur: Awake and alert Psych: Normal Mood and Affect Procedures/MDM Medical Decision Making: Differential diagnosis includes but not limited to upper respiratory infection, pneumonia, sepsis, meningitis, influenza. Patient appeared well on physical examination, nontoxic appearing. Lungs were clear to auscultation bilaterally. There is low suspicion for pneumonia, sepsis, meningitis. Patient likely has an upper respiratory infection, likely viral. Therefore antibiotics not indicated. Discussed symptomatic treatment with patient who agrees with plan. Patient given prescription for supportive medication(s). Patient advised to follow up with PCP in 1-2 days. Patient advised to return to ED for new or worsening symptoms. Patient stable on discharge from the ED. Disclaimer: Inadvertent spelling and grammatical errors are likely due to EHR/dictation software use and do not reflect on the overall quality of patient care. Also, please note that the electronic time recorded on this note does not necessarily reflect the actual time of the patient encounter. Departure Diagnosis: Primary Impression: Cough Condition: Fair Patient Instructions: Preventing Common Respiratory Infections Referrals: [facility] RAMON (PCP) Additional Instructions: Call your primary care doctor TOMORROW for an appointment during the next 1-2 days.See the doctor sooner or return here if your condition worsens before your appointment time. Llame al doctor MAANA y mckenna yue ANICETO PARA DENTRO DE 1-2 SONI.Dgale a la secretaria que nosotros le instruimos hacer esta aniceto.Avise o llame si koch condicin se empeora antes de la aniceto. Regresa aqui si peor o no mejor. YOSSI FOSTER DO Aug 16, 2018 19:02
[2018-08-16 19:11] VITALS: BP 140/63; PULSE 83; RESP 18
== END 2018-08-16 19:13 | disposition home or self-care (01) ==
LOC: FTE 17:28
DX: R05 Cough (principal); J45.909 Unspecified asthma, uncomplicated; I10 Essential (primary) hypertension
CPT/HCPCS: 99283